=== PATIENT | male | born 1950 | race Caucasian/White ===

== ENCOUNTER 2017-12-01 09:16 | Emergency (ER) | payer MEDICARE ==
[~2017-12-01] VITALS: Ht 180.3 cm; Wt 100.0 kg
[2017-12-01 10:51] LABS: BASOPHILS # (AUTO) 0.02 x10^3/uL (0-0.1); BASOPHILS % (AUTO) 1 % (0-1); EOSINOPHILS # (AUTO) 0.17 x10^3/uL (0-0.4); EOSINOPHILS % (AUTO) 5 % (1-7); LYMPHOCYTES # (AUTO) 1.31 x10^3/uL (1-3.4); LYMPHOCYTES % (AUTO) 36 % (22-44); MD NO; MEAN CORPUSCULAR HEMOGLOBIN 35.3 pg (27.5-34.5); MEAN CORPUSCULAR HGB CONC 33.8 g/dL (33.2-36.2); MEAN CORPUSCULAR VOLUME 104.3 fL (81-97); MEAN PLATELET VOLUME 8.5 fL (7.4-10.4); MONOCYTES # (AUTO) 0.27 x10^3/uL (0.2-0.8); MONOCYTES % (AUTO) 7 % (2-9); NEUTROPHILS # (AUTO) 1.88 x10^3/uL (1.8-6.8); NEUTROPHILS % (AUTO) 52 % (42-75); PLATELET COUNT 145 x10^3/uL (130-400); RED BLOOD COUNT 3.43 x10^6/uL (4.38-5.82); RED CELL DISTRIBUTION WIDTH 13.5 % (9.4-14.8)
[2017-12-01 10:58] LABS: ALBUMIN 3.5 g/dL (3.4-5.0); ANION GAP 7 mmol/L (5-15); CALCIUM 8.1 mg/dL (8.5-10.1); CHLORIDE 102 mmol/L (98-107); CREATININE 0.65 mg/dL (0.7-1.3)
[2017-12-01 11:27] VITALS: BP 131/84
== END 2017-12-01 11:29 | disposition home or self-care (01) ==
LOC: ED 09:21
DX: J00 Acute nasopharyngitis [common cold] (principal); F10.220 Alcohol dependence with intoxication, uncomplicated; I10 Essential (primary) hypertension; I25.2 Old myocardial infarction; Z86.73 Personal history of transient ischemic attack (TIA), and cerebral infarction without residual deficits; F17.200 Nicotine dependence, unspecified, uncomplicated
CPT/HCPCS: 36415; 71045; 80048; 82040; 85025; 93005; 99285

== ENCOUNTER 2018-01-14 09:43 | Emergency (ER) | payer MEDICARE ==
[~2018-01-14] VITALS: Ht 180.3 cm; Wt 95.4 kg
[2018-01-14] MEDS ORDERED: ALLO100T30 PO (10:27)
[2018-01-14] MEDS ORDERED: LISI-170 PO (10:27)
[2018-01-14] MEDS ORDERED: ONDANSETRON 2MG/ML, 2ML IVPush ONE (10:30)
[2018-01-14] MEDS ORDERED: MORPHINE SULFATE 4 MG/ML, 1ML IVPush PRN (10:30)
[2018-01-14] MEDS ORDERED: SODIUM CHLORIDE FLUSH 10ML SYR IVF ONE (10:30)
[2018-01-14] MEDS ORDERED: ONDANSETRON 2MG/ML, 2ML ONE (10:37)
[2018-01-14] MEDS ORDERED: MORPHINE SULFATE 4 MG/ML, 1ML ONE (10:37)
[2018-01-14] MEDS ORDERED: DIAZEPAM 5 MG/ML, 2ML IV ONE (12:00)
[2018-01-14] MEDS ORDERED: KETOROLAC 30 MG/1 ML ONE (12:07)
[2018-01-14] MEDS ORDERED: KETOROLAC 30 MG/1 ML IVPush ONE (12:30)
[2018-01-14 13:12] VITALS: BP 161/91
== END 2018-01-14 13:22 | disposition home or self-care (01) ==
LOC: ED 13:16
DX: S33.5XXA Sprain of ligaments of lumbar spine, initial encounter (principal); S16.1XXA Strain of muscle, fascia and tendon at neck level, initial encounter; S76.011A Strain of muscle, fascia and tendon of right hip, initial encounter; S23.9XXA Sprain of unspecified parts of thorax, initial encounter; I25.2 Old myocardial infarction; I10 Essential (primary) hypertension; M10.9 Gout, unspecified; Z86.73 Personal history of transient ischemic attack (TIA), and cerebral infarction without residual deficits; W01.0XXA Fall on same level from slipping, tripping and stumbling without subsequent striking against object, initial encounter; Y93.89 Activity, other specified; Y92.009 Unspecified place in unspecified non-institutional (private) residence as the place of occurrence of the external cause; Y99.8 Other external cause status
CPT/HCPCS: 72072; 72110; 72125; 73502; 93005; 96374; 96375; 99284; J1885; J2405

== ENCOUNTER 2018-02-02 09:01 | Emergency (ER) | payer MEDICARE, MEDICAID ==
[~2018-02-02] VITALS: Ht 180.3 cm; Wt 92.2 kg
[~2018-02-02 09:01] MED LIST: ALLO100T30 PO; LISI-170 PO
[2018-02-02] MEDS ORDERED: DIAZEPAM 5 MG TABLET PO ONE (09:30)
[2018-02-02] MEDS ORDERED: KETOROLAC 30 MG/1 ML IM ONE (09:30)
[2018-02-02] MEDS ORDERED: DIAZEPAM 5 MG TABLET ONE (09:32)
[2018-02-02] MEDS ORDERED: KETOROLAC 30 MG/1 ML ONE (09:32)
[2018-02-02 12:07] VITALS: BP 145/92
== END 2018-02-02 12:44 | disposition home or self-care (01) ==
LOC: ED 11:27
DX: S16.1XXA Strain of muscle, fascia and tendon at neck level, initial encounter (principal); S39.012A Strain of muscle, fascia and tendon of lower back, initial encounter; M51.36 Other intervertebral disc degeneration, lumbar region; I10 Essential (primary) hypertension; W01.0XXA Fall on same level from slipping, tripping and stumbling without subsequent striking against object, initial encounter; Y93.89 Activity, other specified; Y92.009 Unspecified place in unspecified non-institutional (private) residence as the place of occurrence of the external cause; Y99.8 Other external cause status; F17.210 Nicotine dependence, cigarettes, uncomplicated
CPT/HCPCS: 72110; 72125; 96372; 99284; J1885

== ENCOUNTER 2018-03-03 20:00 | Emergency (ER) | payer MEDICARE, MEDICAID ==
[~2018-03-03] VITALS: Ht 180.3 cm; Wt 83.0 kg
[2018-03-03 20:05] VITALS: BP 141/72
== END 2018-03-04 02:31 | disposition home or self-care (01) ==
LOC: ED 22:08
DX: F10.120 Alcohol abuse with intoxication, uncomplicated (principal); I10 Essential (primary) hypertension; I25.2 Old myocardial infarction; Z86.73 Personal history of transient ischemic attack (TIA), and cerebral infarction without residual deficits; F17.200 Nicotine dependence, unspecified, uncomplicated
CPT/HCPCS: 99283

== ENCOUNTER 2018-04-03 22:37 | Emergency (ER) | payer MEDICARE, MEDICAID ==
[~2018-04-03] VITALS: Ht 180.3 cm; Wt 91.0 kg
--- NOTE | 2018-04-03 22:37 | NUR ---
BIB EMS from [facility] for SI, on a legal hold with [employer]. Pt states that he has no family and nothing to live for. Pt states that he was released from [facility] earlier today and went to [facility] stating that he was suicidal and upon being released flagged down [employer] in the parking lot of [facility] and stated that he is suicidal with a plan to "jump off of a bridge or in front of a train" but states "that didn't sound like a good idea." Pt states that he was given Rx from [facility] and did not fill them.
--- NOTE | 2018-04-03 22:50 | NUR ---
Urine sample collected and sent to lab. Garage doors down and pt in gown, 1 belonging bag, with pt sticker, placed in locked cabinet. Sitter outside of room for pt safety.
[2018-04-03 23:09] LABS: BASOPHILS # (AUTO) 0.01 x10^3/uL (0-0.1); BASOPHILS % (AUTO) 0 % (0-1); EOSINOPHILS # (AUTO) 0.12 x10^3/uL (0-0.4); EOSINOPHILS % (AUTO) 2 % (1-7); LYMPHOCYTES # (AUTO) 0.89 x10^3/uL (1-3.4); LYMPHOCYTES % (AUTO) 17 % (22-44); MD NO; MEAN CORPUSCULAR HEMOGLOBIN 32.6 pg (27.5-34.5); MEAN CORPUSCULAR HGB CONC 33.7 g/dL (33.2-36.2); MEAN CORPUSCULAR VOLUME 96.7 fL (81-97); MEAN PLATELET VOLUME 8.2 fL (7.4-10.4); MONOCYTES # (AUTO) 0.39 x10^3/uL (0.2-0.8); MONOCYTES % (AUTO) 8 % (2-9); NEUTROPHILS # (AUTO) 3.72 x10^3/uL (1.8-6.8); NEUTROPHILS % (AUTO) 72 % (42-75); PLATELET COUNT 153 x10^3/uL (130-400); RED BLOOD COUNT 3.62 x10^6/uL (4.38-5.82); RED CELL DISTRIBUTION WIDTH 14.3 % (9.4-14.8)
[2018-04-03 23:18] LABS: ALANINE AMINOTRANSFERASE 26 U/L (12-78); ALBUMIN 3.7 g/dL (3.4-5.0); ANION GAP 11 mmol/L (5-15); CALCIUM 8.2 mg/dL (8.5-10.1); CHLORIDE 93 mmol/L (98-107); CREATININE 0.51 mg/dL (0.7-1.3)
--- NOTE | 2018-04-03 23:18 | NUR ---
Dr. Cortez at bedside to evaluate pt.
[2018-04-03 23:20] LABS: SALICYLATE LEVEL < 1.7 mg/dL (2.8-20.0)
[2018-04-03 23:21] LABS: ACETAMINOPHEN < 2 mcg/mL (10-30); ALKALINE PHOSPHATASE 76 U/L (45-117); BILIRUBIN,TOTAL 0.7 mg/dL (0.2-1.0); TOTAL PROTEIN 6.8 g/dL (6.4-8.2)
--- NOTE | 2018-04-03 23:22 | NUR ---
Pt signed sheets for records requests from [facility] and [facility].
[2018-04-03 23:27] LABS: AMPHETAMINE SCREEN, URINE Negative (Negative); BARBITURATE SCREEN, URINE Negative (Negative); BENZODIAZEPINE SCREEN, URINE Negative (Negative); CANNABINOID SCREEN, URINE Positive (Negative); COCAINE SCREEN, URINE Negative (Negative); METHADONE SCREEN, URINE Negative (Negative); OPIATE SCREEN, URINE Negative (Negative)
--- NOTE | 2018-04-03 23:42 | NUR ---
ROSAMARIA RN: TELEPSYCH PAGED
--- NOTE | 2018-04-04 00:13 | NUR ---
Pt ambulated to bathroom, no assistance required.
--- NOTE | 2018-04-04 01:11 | NUR ---
Dr Menchaca, SOC, given SBAR report via telephone. Pt woken up for telepsych exam.
--- NOTE | 2018-04-04 01:13 | NUR ---
Pt speaking with SOC, Dr. Obregon.
[2018-04-04 02:04] VITALS: BP 138/78
--- NOTE | 2018-04-04 02:05 | NUR ---
Patient/Caregiver given discharge instructions and they have confirmed that they understand the instructions. Patient ambulatory with steady gait. Pt given [employer] cab voucher for safe discharge to the [facility].
== END 2018-04-04 02:06 | disposition home or self-care (01) ==
LOC: ED 23:18
DX: F43.23 Adjustment disorder with mixed anxiety and depressed mood (principal); Z72.9 Problem related to lifestyle, unspecified; F10.10 Alcohol abuse, uncomplicated; I25.2 Old myocardial infarction; I10 Essential (primary) hypertension; Z86.73 Personal history of transient ischemic attack (TIA), and cerebral infarction without residual deficits
CPT/HCPCS: 36415; 80053; 80307; 80329; 85025; 99284; G0480

== ENCOUNTER 2018-05-08 08:14 | Emergency (ER) | payer MEDICARE, MEDICAID ==
[~2018-05-08] VITALS: Ht 180.3 cm; Wt 88.0 kg
--- NOTE | 2018-05-08 08:52 | NUR ---
URINE COLLECTED AND SENT TO LAB. GARAGE DOORS DOWN FOR SAFETY.
--- NOTE | 2018-05-08 08:56 | NUR ---
patient safe in SONIA jacob at bedside for assessment
[2018-05-08 09:15] LABS: AMPHETAMINE SCREEN, URINE Negative (Negative); BARBITURATE SCREEN, URINE Negative (Negative); BENZODIAZEPINE SCREEN, URINE Negative (Negative); CANNABINOID SCREEN, URINE Positive (Negative); COCAINE SCREEN, URINE Negative (Negative); METHADONE SCREEN, URINE Negative (Negative); OPIATE SCREEN, URINE Negative (Negative)
[2018-05-08 09:22] LABS: BASOPHILS # (AUTO) 0.02 x10^3/uL (0-0.1); BASOPHILS % (AUTO) 0 % (0-1); EOSINOPHILS # (AUTO) 0.19 x10^3/uL (0-0.4); EOSINOPHILS % (AUTO) 3 % (1-7); LYMPHOCYTES # (AUTO) 0.71 x10^3/uL (1-3.4); LYMPHOCYTES % (AUTO) 13 % (22-44); MD NO; MEAN CORPUSCULAR HEMOGLOBIN 31.6 pg (27.5-34.5); MEAN CORPUSCULAR HGB CONC 32.9 g/dL (33.2-36.2); MEAN CORPUSCULAR VOLUME 95.9 fL (81-97); MONOCYTES # (AUTO) 0.44 x10^3/uL (0.2-0.8); MONOCYTES % (AUTO) 8 % (2-9); NEUTROPHILS # (AUTO) 4.09 x10^3/uL (1.8-6.8); NEUTROPHILS % (AUTO) 75 % (42-75); PLATELET COUNT 236 x10^3/uL (130-400); RED BLOOD COUNT 3.95 x10^6/uL (4.38-5.82); RED CELL DISTRIBUTION WIDTH 15.7 % (9.4-14.8)
[2018-05-08] MEDS ORDERED: LISINOPRIL 20 MG TABLET PO ONE (09:30)
[2018-05-08 09:33] LABS: ANION GAP 8 mmol/L (5-15); CHLORIDE 102 mmol/L (98-107)
[2018-05-08 09:41] LABS: ALANINE AMINOTRANSFERASE 28 U/L (12-78); ALKALINE PHOSPHATASE 101 U/L (45-117); BILIRUBIN,TOTAL 0.7 mg/dL (0.2-1.0); CALCIUM 8.8 mg/dL (8.5-10.1); CREATININE 0.64 mg/dL (0.7-1.3); TOTAL PROTEIN 6.6 g/dL (6.4-8.2)
[2018-05-08 09:42] LABS: ACETAMINOPHEN < 2 mcg/mL (10-30); SALICYLATE LEVEL < 1.7 mg/dL (2.8-20.0)
[2018-05-08 11:53] VITALS: BP 155/94
--- NOTE | 2018-05-08 12:04 | NUR ---
TASK RN: PSYCH EVALUATION COMPLETE, PT HAS BEEN CLEARED FOR DISCHARGE. PT ALERT AND AMBULATING WELL. BUS PASS AND MEDICATION ASSISTANCE INFORMATION GIVEN.
== END 2018-05-08 12:08 | disposition home or self-care (01) ==
LOC: ED 09:11
DX: F32.0 Major depressive disorder, single episode, mild (principal); I10 Essential (primary) hypertension; I25.2 Old myocardial infarction; Z72.9 Problem related to lifestyle, unspecified; Z86.73 Personal history of transient ischemic attack (TIA), and cerebral infarction without residual deficits
CPT/HCPCS: 36415; 80053; 80307; 80329; 85025; 99284; G0480

== ENCOUNTER 2018-08-18 23:35 | Inpatient (IN) | payer MEDICARE, MEDICAID ==
[~2018-08-18] VITALS: Ht 180.3 cm; Wt 92.9 kg
[~2018-08-18 23:35] MED LIST changes: +ACAM333T7 PO; +ALLO300T PO; +ASPI81TA50 PO; +DULO20CA45 PO; +DULO60CA7 PO; +GABA-827 PO; +GABA600T7 PO; +LISI2.5T PO; +METH750T2 PO; +METO200T47 PO; +NAPR-856 PO; +OMEP10CA4 PO; +PRAZ1CAP2 PO; +PRED1TAB PO; +QUET25TA5 PO; +QUET25TA7 PO; +TRAZ-137 PO
[2018-08-19] MEDS ORDERED: ACETAMINOPHEN 325 MG TABLET PO PRN (02:30)
[2018-08-19 02:51] VITALS: BP 119/83
[2018-08-19 03:00] VITALS: BP_SYST 119; BP_SYST 136; BP_SYST 92; BP_DIAS 64; BP_DIAS 83; BP_DIAS 85
[2018-08-19 07:27] VITALS: BP 138/89
[2018-08-19] MEDS ORDERED: DIPHENHYDRAMINE 25 MG CAPSULE PO PRN (10:00)
[2018-08-19] MEDS ORDERED: LACTOBACILLUS CHEW TABLET PO SCH (16:00)
[2018-08-19] MEDS ORDERED: ACAMPROSATE 333 MG TABLET.DR PO SCH (16:00)
[2018-08-19] MEDS ORDERED: GABAPENTIN 300 MG CAPSULE PO SCH (16:00)
[2018-08-19] MEDS ORDERED: CARVEDILOL 3.125 MG TABLET PO SCH (18:00)
[2018-08-19] MEDS ORDERED: QUETIAPINE 25MG TABLET PO SCH (21:00)
[2018-08-19] MEDS ORDERED: ATORVASTATIN 20 MG TABLET PO SCH (21:00)
[2018-08-19] MEDS ORDERED: TRAZODONE 100MG TABLET PO SCH (21:00)
[2018-08-20] MEDS ORDERED: ALLOPURINOL 100 MG TABLET PO SCH (09:00)
[2018-08-20] MEDS ORDERED: DULOXETINE 30 MG CAPSULE.DR PO SCH (09:00)
[2018-08-20] MEDS ORDERED: NAPROXEN 500 MG TABLET PO SCH (09:00)
[2018-08-20] MEDS ORDERED: LISINOPRIL 20 MG TABLET PO SCH (09:00)
[2018-08-20] MEDS ORDERED: OMEPRAZOLE 10 MG CAPSULE.DR PO SCH (09:00)
[2018-08-20] MEDS ORDERED: ASPIRIN 81 MG TABLET EC PO SCH (09:00)
[2018-08-20] MEDS ORDERED: AMLODIPINE 2.5 MG TABLET PO SCH (09:00)
== END 2018-08-19 13:00 | disposition home or self-care (01) | DRG 885 ==
LOC: 3E 08-19 02:38
PROVIDERS: ADMIT Psychiatry & Neurology Psychosomatic Medicine; ATTEND Psychiatry & Neurology Psychosomatic Medicine
DX: F33.2 Major depressive disorder, recurrent severe without psychotic features (principal); R45.851 Suicidal ideations; F10.20 Alcohol dependence, uncomplicated; G47.00 Insomnia, unspecified; G89.29 Other chronic pain; I10 Essential (primary) hypertension; I25.10 Atherosclerotic heart disease of native coronary artery without angina pectoris; I48.91 Unspecified atrial fibrillation; K21.9 Gastro-esophageal reflux disease without esophagitis; E66.9 Obesity, unspecified; M10.9 Gout, unspecified; Z79.82 Long term (current) use of aspirin; Z79.899 Other long term (current) drug therapy; Z80.0 Family history of malignant neoplasm of digestive organs; Z82.0 Family history of epilepsy and other diseases of the nervous system; Z86.73 Personal history of transient ischemic attack (TIA), and cerebral infarction without residual deficits; Z87.891 Personal history of nicotine dependence; Z68.28 Body mass index [BMI] 28.0-28.9, adult; Z71.3 Dietary counseling and surveillance

== ENCOUNTER 2018-09-16 04:37 | Inpatient (IN) | payer MEDICARE, MEDICAID ==
[~2018-09-16] VITALS: Ht 180.3 cm; Wt 98.6 kg
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
--- NOTE | 2018-09-16 05:20 | NUR ---
PT. OUT OF ROOM FOR CT.
--- NOTE | 2018-09-16 05:50 | NUR ---
PT. ABLE TO VOID VIA URINAL WITHOUT ASSISTANCE. URINE SENT TO LAB. LABS DRAWN BY COORDINATOR VOLUNTEER SERVICES AT . PT. ASSISTED TO CLEAN BLOOD OFF HANDS AND ARMS. AWAITING CT SCAN RESULTS. C-COLLAR REMAINS IN PLACE. VS UPDATED. PT. HAS CALL LIGHT IN REACH. ALL SAFETY MEASURES OBSERVED.
[2018-09-16 05:56] LABS: MEAN CORPUSCULAR HGB CONC 34.7 g/dL (33.2-36.2); RED BLOOD COUNT 3.37 x10^6/uL (4.38-5.82); RED CELL DISTRIBUTION WIDTH 14.1 % (9.4-14.8)
[2018-09-16 06:05] LABS: ALBUMIN 3.4 g/dL (3.4-5.0); ANION GAP 10 mmol/L (5-15); CALCIUM 7.8 mg/dL (8.5-10.1); CHLORIDE 91 mmol/L (98-107)
[2018-09-16 06:06] LABS: SALICYLATE LEVEL < 1.7 mg/dL (2.8-20.0)
[2018-09-16 06:07] LABS: AMPHETAMINE SCREEN, URINE Negative (Negative); BARBITURATE SCREEN, URINE Negative (Negative); BENZODIAZEPINE SCREEN, URINE Negative (Negative); CANNABINOID SCREEN, URINE Positive (Negative); COCAINE SCREEN, URINE Negative (Negative); METHADONE SCREEN, URINE Negative (Negative); OPIATE SCREEN, URINE Negative (Negative)
[2018-09-16 06:35] LABS: MD YES
[2018-09-16 06:39] LABS: BAND#(MANUAL) 0.05 x10^3/uL; BANDS%(MANUAL) 1 % (0-7); EOS#(MANUAL) 0.14 x10^3/uL (0.0-0.4); EOS% (MANUAL) 3 % (1-7); LYMPH#(MANUAL) 0.87 x10^3/uL (1-3.4); LYMPHS% (MANUAL) 19 % (22-44); MONOS#(MANUAL) 0.23 x10^3/uL (0.3-2.7); MONOS% (MANUAL) 5 % (2-9); SEG#(MANUAL) 3.31 x10^3/uL (1.8-6.8); SEGS% (MANUAL) 72 % (42-75)
[2018-09-16 06:42] LABS: MEAN PLATELET VOLUME 7.8 fL (7.4-10.4); PLATELET COUNT 95 x10^3/uL (130-400)
[2018-09-16 06:45] LABS: <PLATELET ESTIMATE> DECREASED; <PLT MORPHOLOGY> NORMAL PLT MORPH; <RBC MORPHOLOGY> NORMAL
[2018-09-16 06:46] LABS: SODIUM,URINE RANDOM 34 mmol/L
[2018-09-16] MEDS ORDERED: LIDOCAINE-MPF 1%, 5ML ONE (06:48)
[2018-09-16] MEDS ORDERED: THIAMINE 100MG TABLET ONE (06:48)
--- NOTE | 2018-09-16 06:57 | NUR ---
received report from Laquita. pt upright on gurney awake & calm, responds approp to staff, NAD, comfort measures provided, call light within reach. providers at for wound care.
[2018-09-16 06:58] LABS: OSMOLALITY,URINE 336 mOsm/kg (500-850)
[2018-09-16] MEDS ORDERED: THIAMINE 100MG TABLET PO ONE (07:00)
[2018-09-16] MEDS ORDERED: LIDOCAINE-MPF 1%, 5ML INFIL ONE (07:00)
--- NOTE | 2018-09-16 07:20 | NUR ---
Pt to be admitted to [facility], room 424. Report called to Rashawn.
[2018-09-16 08:10] LABS: ALBUMIN 3.5 g/dL (3.4-5.0); BILIRUBIN, DIRECT 0.2 mg/dL (0.1-0.2)
[2018-09-16 08:11] LABS: BILIRUBIN,INDIRECT 0.6 mg/dL (0.0-2.0); BILIRUBIN,TOTAL 0.8 mg/dL (0.2-1.0); TOTAL PROTEIN 6.5 g/dL (6.4-8.2)
[2018-09-16 08:29] VITALS: BP 116/75
[2018-09-16] MEDS ORDERED: ONDANSETRON 2MG/ML, 2ML IVPush PRN (09:00)
[2018-09-16] MEDS ORDERED: OXYcodone IR 5MG TABLET PO PRN (09:00)
[2018-09-16] MEDS ORDERED: morphine SULFATE 10 MG/ML, 1ML IVPush PRN (09:00)
[2018-09-16] MEDS ORDERED: GUAIFENESIN/COD200MG-20MG/10ML LIQUID PO PRN (09:00)
[2018-09-16] MEDS ORDERED: LORazepam 2 MG/ML, 1ML IV PRN ×4 (09:00)
[2018-09-16] MEDS ORDERED: ACETAMINOPHEN 325 MG TABLET PO PRN (09:00)
[2018-09-16] MEDS ORDERED: DOCUSATE 100 MG CAPSULE PO PRN (09:00)
[2018-09-16] MEDS ORDERED: hydrALAzine 20 MG/ML, 1ML IVPush PRN (09:00)
[2018-09-16] MEDS ORDERED: THIAMINE 200 MG in DEXTROSE 5% 50 ML IVPB ONE (09:00)
[2018-09-16] MEDS ORDERED: POTASSIUM CHLORIDE 20 MEQ, MVI ADULT 10 ML, FOLIC ACID 1 MG, MAGNESIUM SULFATE 1 GM in ... IV SCH (09:30)
[2018-09-16] MEDS: NAPROXEN 500 MG TABLET PO SCH (10:34)
[2018-09-16] MEDS: GABAPENTIN 300 MG CAPSULE PO SCH ×3 (10:34→21:30)
[2018-09-16] MEDS: DULOXETINE 30 MG CAPSULE.DR PO SCH (10:34)
[2018-09-16] MEDS: ENOXAPARIN 40 MG/0.4 ML SQ SCH (10:34)
[2018-09-16] MEDS: ALLOPURINOL 100 MG TABLET PO SCH (10:34)
[2018-09-16] MEDS: ASPIRIN 81 MG TABLET EC PO SCH (10:34)
[2018-09-16] MEDS: PANTOPROZOLE 40MG TABLET PO SCH (10:34)
[2018-09-16] MEDS: LISINOPRIL 20 MG TABLET PO SCH (10:34)
[2018-09-16] MEDS: SODIUM CHLORIDE 1 GM TABLET PO SCH ×3 (10:34→21:30)
[2018-09-16 12:12] VITALS: BP 125/79
[2018-09-16 16:07] LABS: ANION GAP 7 mmol/L (5-15); CHLORIDE 98 mmol/L (98-107); CREATININE 0.58 mg/dL (0.7-1.3)
[2018-09-16 20:10] VITALS: BP 113/70
[2018-09-16] MEDS: D5%-0.9% NACL+KCL 20MEQ 1,000 ML IV SCH (21:29)
[2018-09-16] MEDS: QUETIAPINE 25MG TABLET PO SCH (21:30)
[2018-09-16] MEDS: TRAZODONE 100MG TABLET PO SCH (21:30)
[2018-09-17 00:47] VITALS: BP 93/55
[2018-09-17] MEDS: D5%-0.9% NACL+KCL 20MEQ 1,000 ML IV SCH (05:14)
[2018-09-17 06:01] LABS: ANION GAP 4 mmol/L (5-15); CALCIUM 8.2 mg/dL (8.5-10.1); CHLORIDE 104 mmol/L (98-107); CREATININE 0.62 mg/dL (0.7-1.3)
[2018-09-17 06:13] LABS: MEAN CORPUSCULAR HEMOGLOBIN 32.1 pg (27.5-34.5); MEAN CORPUSCULAR HGB CONC 33.3 g/dL (33.2-36.2); MEAN CORPUSCULAR VOLUME 96.2 fL (81-97); MEAN PLATELET VOLUME 8.5 fL (7.4-10.4); PLATELET COUNT 87 x10^3/uL (130-400); RED BLOOD COUNT 3.47 x10^6/uL (4.38-5.82); RED CELL DISTRIBUTION WIDTH 15.1 % (9.4-14.8)
[2018-09-17 06:14] LABS: BASOPHILS # (AUTO) 0.01 x10^3/uL (0-0.1); BASOPHILS % (AUTO) 0 % (0-1); EOSINOPHILS # (AUTO) 0.18 x10^3/uL (0-0.4); EOSINOPHILS % (AUTO) 6 % (1-7); LYMPHOCYTES # (AUTO) 0.81 x10^3/uL (1-3.4); LYMPHOCYTES % (AUTO) 27 % (22-44); MD SCAN; MONOCYTES # (AUTO) 0.23 x10^3/uL (0.2-0.8); MONOCYTES % (AUTO) 8 % (2-9); NEUTROPHILS # (AUTO) 1.76 x10^3/uL (1.8-6.8); NEUTROPHILS % (AUTO) 59 % (42-75)
[2018-09-17 07:47] VITALS: BP 127/81
[2018-09-17] MEDS: DULOXETINE 30 MG CAPSULE.DR PO SCH (08:01)
[2018-09-17] MEDS: LISINOPRIL 20 MG TABLET PO SCH (08:01)
[2018-09-17] MEDS: MULTIVITAMIN 1 TABLET PO SCH (08:01)
[2018-09-17] MEDS: NALTREXONE HCL 50 MG TABLET PO SCH (08:01)
[2018-09-17] MEDS: FOLIC ACID 1 MG TABLET PO SCH (08:01)
[2018-09-17] MEDS: NAPROXEN 500 MG TABLET PO SCH (08:01)
[2018-09-17] MEDS: THIAMINE 100MG TABLET PO SCH ×2 (08:01→21:06)
[2018-09-17] MEDS: PANTOPROZOLE 40MG TABLET PO SCH (08:01)
[2018-09-17] MEDS: ASPIRIN 81 MG TABLET EC PO SCH (08:01)
[2018-09-17] MEDS: BUPROPION SR 150 MG TABLET PO SCH (08:01)
[2018-09-17] MEDS: ALLOPURINOL 100 MG TABLET PO SCH (08:01)
[2018-09-17] MEDS: GABAPENTIN 300 MG CAPSULE PO SCH ×3 (08:04→21:06)
[2018-09-17] MEDS ORDERED: THIAMINE 100 MG in DEXTROSE 5% 50 ML IVPB SCH (09:00)
[2018-09-17] MEDS ORDERED: THIAMINE 100MG TABLET PO SCH (09:00)
[2018-09-17] MEDS: ENOXAPARIN 40 MG/0.4 ML SQ SCH (09:39)
[2018-09-17 12:11] VITALS: BP 165/95
[2018-09-17] MEDS ORDERED: SENNA/DOCUSATE TABLET PO PRN (16:00)
[2018-09-17] MEDS ORDERED: POLYETHYLENE GLYCOL 17 GM PACKET PO PRN (16:00)
[2018-09-17 19:32] VITALS: BP 116/77
[2018-09-17] MEDS: TRAZODONE 100MG TABLET PO SCH (21:06)
[2018-09-17] MEDS: QUETIAPINE 25MG TABLET PO SCH (21:06)
[2018-09-17] MEDS: LORazepam 2 MG/ML, 1ML IV PRN (21:07)
[2018-09-18 02:24] VITALS: BP 118/66
[2018-09-18 05:31] LABS: CALCIUM 8.5 mg/dL (8.5-10.1); CHLORIDE 102 mmol/L (98-107)
[2018-09-18 05:37] LABS: ALANINE AMINOTRANSFERASE 28 U/L (12-78); ALBUMIN 3.2 g/dL (3.4-5.0); ALKALINE PHOSPHATASE 62 U/L (45-117); BILIRUBIN,TOTAL 0.7 mg/dL (0.2-1.0); CREATININE 0.69 mg/dL (0.7-1.3); TOTAL PROTEIN 6.2 g/dL (6.4-8.2)
[2018-09-18 05:53] LABS: MEAN CORPUSCULAR HEMOGLOBIN 32.2 pg (27.5-34.5); MEAN CORPUSCULAR VOLUME 97.6 fL (81-97); RED BLOOD COUNT 3.32 x10^6/uL (4.38-5.82); RED CELL DISTRIBUTION WIDTH 14.7 % (9.4-14.8)
[2018-09-18 05:55] LABS: BASOPHILS # (AUTO) 0.01 x10^3/uL (0-0.1); BASOPHILS % (AUTO) 1 % (0-1); EOSINOPHILS # (AUTO) 0.16 x10^3/uL (0-0.4); EOSINOPHILS % (AUTO) 8 % (1-7); LYMPHOCYTES # (AUTO) 0.67 x10^3/uL (1-3.4); LYMPHOCYTES % (AUTO) 33 % (22-44); MD SCAN; MEAN PLATELET VOLUME 8.5 fL (7.4-10.4); MONOCYTES % (AUTO) 10 % (2-9); NEUTROPHILS # (AUTO) 0.99 x10^3/uL (1.8-6.8); NEUTROPHILS % (AUTO) 49 % (42-75); PLATELET COUNT 57 x10^3/uL (130-400)
[2018-09-18 06:27] LABS: ANION GAP 4 mmol/L (5-15)
[2018-09-18] MEDS: PANTOPROZOLE 40MG TABLET PO SCH (07:57)
[2018-09-18] MEDS: ASPIRIN 81 MG TABLET EC PO SCH (07:57)
[2018-09-18] MEDS: DULOXETINE 30 MG CAPSULE.DR PO SCH (07:57)
[2018-09-18] MEDS: GABAPENTIN 300 MG CAPSULE PO SCH ×3 (07:58→19:45)
[2018-09-18] MEDS: MULTIVITAMIN 1 TABLET PO SCH (07:58)
[2018-09-18] MEDS: ALLOPURINOL 100 MG TABLET PO SCH (07:58)
[2018-09-18] MEDS: FOLIC ACID 1 MG TABLET PO SCH (07:58)
[2018-09-18] MEDS: NALTREXONE HCL 50 MG TABLET PO SCH (07:58)
[2018-09-18] MEDS: THIAMINE 100MG TABLET PO SCH ×2 (07:58→19:45)
[2018-09-18] MEDS: LISINOPRIL 20 MG TABLET PO SCH (07:58)
[2018-09-18] MEDS: NAPROXEN 500 MG TABLET PO SCH (07:58)
[2018-09-18] MEDS: BUPROPION SR 150 MG TABLET PO SCH (07:58)
[2018-09-18 08:00] VITALS: BP 129/85
[2018-09-18 09:23] LABS: INTERNATIONAL NORMALIZED RATIO 1.09 (0.93-1.1); PROTHROMBIN TIME 11.4 Seconds (9.6-11.5)
[2018-09-18 09:30] LABS: RED BLOOD COUNT 3.34 x10^6/uL (4.38-5.82)
[2018-09-18 09:48] LABS: THYROID STIMULATING HORMONE 1.08 mIU/L (0.358-3.740)
[2018-09-18] MEDS: LORazepam 2 MG/ML, 1ML IV PRN (10:00)
[2018-09-18 10:29] LABS: ABSOLUTE RETICS # 0.082 x10^6/uL (0.5-1.5); RETICULOCYTE COUNT % 2.47 % (0.5-1.5)
[2018-09-18 13:06] VITALS: BP 154/88
[2018-09-18 19:25] VITALS: BP 116/80
[2018-09-18] MEDS: TRAZODONE 100MG TABLET PO SCH (19:45)
[2018-09-18] MEDS: QUETIAPINE 25MG TABLET PO SCH (19:46)
[2018-09-19 01:59] VITALS: BP 98/62
[2018-09-19 06:09] LABS: MEAN CORPUSCULAR HEMOGLOBIN 32.3 pg (27.5-34.5); MEAN CORPUSCULAR HGB CONC 33.1 g/dL (33.2-36.2); MEAN CORPUSCULAR VOLUME 97.4 fL (81-97); MEAN PLATELET VOLUME 8.6 fL (7.4-10.4); PLATELET COUNT 63 x10^3/uL (130-400); RED BLOOD COUNT 3.29 x10^6/uL (4.38-5.82); RED CELL DISTRIBUTION WIDTH 14.4 % (9.4-14.8)
[2018-09-19 06:13] LABS: ANION GAP 5 mmol/L (5-15); CALCIUM 8.6 mg/dL (8.5-10.1); CHLORIDE 97 mmol/L (98-107); CREATININE 0.82 mg/dL (0.7-1.3)
[2018-09-19 06:59] LABS: BASOPHILS # (AUTO) 0.01 x10^3/uL (0-0.1); BASOPHILS % (AUTO) 1 % (0-1); EOSINOPHILS # (AUTO) 0.15 x10^3/uL (0-0.4); EOSINOPHILS % (AUTO) 7 % (1-7); LYMPHOCYTES % (AUTO) 27 % (22-44); MD SCAN; MONOCYTES # (AUTO) 0.21 x10^3/uL (0.2-0.8); MONOCYTES % (AUTO) 10 % (2-9); NEUTROPHILS # (AUTO) 1.28 x10^3/uL (1.8-6.8); NEUTROPHILS % (AUTO) 57 % (42-75)
[2018-09-19 07:12] VITALS: BP 138/88
== END 2018-09-19 09:43 | disposition left against medical advice (07) | DRG 640 ==
LOC: ED 05:57 → EDIP 06:35 → 4WST 08:01
PROVIDERS: ADMIT Hospitalist; ATTEND Hospitalist
PROC: 0HQ1XZZ Repair Face Skin, External Approach (ICD-10-PCS; principal; 2018-09-16)
PROC: 0CQ0XZZ Repair Upper Lip, External Approach (ICD-10-PCS; 2018-09-16)
DX: E87.1 Hypo-osmolality and hyponatremia (principal); D61.811 Other drug-induced pancytopenia; F32.2 Major depressive disorder, single episode, severe without psychotic features; R45.851 Suicidal ideations; F10.229 Alcohol dependence with intoxication, unspecified; D69.6 Thrombocytopenia, unspecified; Z53.21 Procedure and treatment not carried out due to patient leaving prior to being seen by health care provider; F12.90 Cannabis use, unspecified, uncomplicated; G62.9 Polyneuropathy, unspecified; I10 Essential (primary) hypertension; I48.91 Unspecified atrial fibrillation; K21.9 Gastro-esophageal reflux disease without esophagitis; S01.21XA Laceration without foreign body of nose, initial encounter; S01.81XA Laceration without foreign body of other part of head, initial encounter; E66.9 Obesity, unspecified; F43.20 Adjustment disorder, unspecified; M10.9 Gout, unspecified; W01.198A Fall on same level from slipping, tripping and stumbling with subsequent striking against other object, initial encounter; T50.4X5A Adverse effect of drugs affecting uric acid metabolism, initial encounter; Z80.0 Family history of malignant neoplasm of digestive organs; Z82.0 Family history of epilepsy and other diseases of the nervous system; Z86.73 Personal history of transient ischemic attack (TIA), and cerebral infarction without residual deficits; Z87.891 Personal history of nicotine dependence; Y93.89 Activity, other specified; Y92.89 Other specified places as the place of occurrence of the external cause; Y99.8 Other external cause status; Z79.899 Other long term (current) drug therapy; I25.2 Old myocardial infarction; Z68.30 Body mass index [BMI] 30.0-30.9, adult
CPT/HCPCS: 36415; 70450; 72125; 80048; 80053; 80076; 80307; 82040; 82607; 83735; 83930; 83935; 84100; 84300; 84443; 85025; 85045; 85610; 85730; 86704; 86705; 86706; 86707; 86803; 86850; 86900; 87340; 87350; 87806; G0378; J1650; J3411; J3475; J3480; J7042; G0475; J2060

== ENCOUNTER 2018-09-19 22:36 | Emergency (ER) | payer MEDICARE, MEDICAID ==
[~2018-09-19] VITALS: Ht 180.3 cm; Wt 100.0 kg
[2018-09-19 22:45] VITALS: BP 115/73
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
--- NOTE | 2018-09-20 00:46 | NUR ---
PT GIVEN DC INSTRUCTIONS. PT AMB TO DC WITH STEADY GAIT. NO ACUTE DISTRESS AT DC.
== END 2018-09-20 00:46 | disposition home or self-care (01) ==
LOC: ED 22:52
DX: F10.120 Alcohol abuse with intoxication, uncomplicated (principal); F32.9 Major depressive disorder, single episode, unspecified; Z72.9 Problem related to lifestyle, unspecified; F17.210 Nicotine dependence, cigarettes, uncomplicated; I10 Essential (primary) hypertension; I25.2 Old myocardial infarction
CPT/HCPCS: 99283

== ENCOUNTER 2018-10-02 15:07 | Inpatient (IN) | payer MEDICARE, MEDICAID ==
[~2018-10-02] VITALS: Ht 180.3 cm; Wt 96.0 kg
--- NOTE | 2018-10-02 15:13 | NUR ---
68 Y/O MALE BIB AMBULANCE WITH C/O CP AND SA. PER PT "I FELL DOWN IN THE BATHROOM. I TRIED TO COMMIT SUICIDE. I TRIED TO HANG MYSELF WITH THE SHOELACE AND I PUT IT BACK IN MY SHOE. IT WAS ABOUT 1400 I PUT THE SHOELACE AROUND MY NECK. THE SHELACE CAME LOSE AND I FELL TO THE GROUND. MY ARMS AND HANDS ARE BOTH NUMB. I CALLED 911 BECAUSE I WAS HAVING CHEST PAIN AND NUMBNESS. I HAVEN'T TAKEN MY MEDS AND JUST GOT OUT OF [facility]." PER EMS REPORT PT CAME FROM [facility]. PIV ESTABLISHED MANAGER TRANSFER. PT GIVEN 324 ASA AND 1 SL NITRO. PT PLACED ON CONT PULSE OX,NIBP, CARDAIC MONITOR. ED PROVIDER BEDSIDE.
--- NOTE | 2018-10-02 15:23 | NUR ---
PT ALSO STATES "I FELL THE OTHER DAY." PT HAS BRUISE ON RIGHT QUADRANT ABDOMEN. PT TENDER TO PALPATATION R ABDOMINAL QUADRANT.
[2018-10-02] MEDS ORDERED: SODIUM CHLORIDE FLUSH 10ML SYR IVF ONE (15:30)
[2018-10-02 15:46] LABS: BASOPHILS # (AUTO) 0.02 x10^3/uL (0-0.1); BASOPHILS % (AUTO) 0 % (0-1); EOSINOPHILS # (AUTO) 0.06 x10^3/uL (0-0.4); EOSINOPHILS % (AUTO) 1 % (1-7); LYMPHOCYTES # (AUTO) 0.74 x10^3/uL (1-3.4); LYMPHOCYTES % (AUTO) 11 % (22-44); MD NO; MEAN CORPUSCULAR HGB CONC 33.6 g/dL (33.2-36.2); MEAN CORPUSCULAR VOLUME 98.3 fL (81-97); MONOCYTES # (AUTO) 0.26 x10^3/uL (0.2-0.8); MONOCYTES % (AUTO) 4 % (2-9); NEUTROPHILS # (AUTO) 5.63 x10^3/uL (1.8-6.8); NEUTROPHILS % (AUTO) 84 % (42-75); PLATELET COUNT 152 x10^3/uL (130-400); RED BLOOD COUNT 3.71 x10^6/uL (4.38-5.82); RED CELL DISTRIBUTION WIDTH 15.3 % (9.4-14.8)
--- NOTE | 2018-10-02 15:54 | NUR ---
RECEIVED REPORT FROM YECENIA ZAMORA. PT MOVED TO ROOM 38. ROOM SECURED ON ONE WALL. PT PLACED ON MONITORS FOR CP MONITORING. SITTER AT BEDSIDE. PERSONAL BELONGING BAGS (1 OF 1) PLACED IN SECURE LOCKER. PT RESTING ON [facility]. NADN. MURILLOS.
[2018-10-02 15:58] LABS: INTERNATIONAL NORMALIZED RATIO 1.08 (0.93-1.1); PROTHROMBIN TIME 11.3 Seconds (9.6-11.5)
[2018-10-02 16:26] LABS: ALBUMIN 3.8 g/dL (3.4-5.0); ANION GAP 10 mmol/L (5-15); CALCIUM 8.5 mg/dL (8.5-10.1); CHLORIDE 92 mmol/L (98-107); CREATININE 0.62 mg/dL (0.7-1.3)
[2018-10-02 16:27] LABS: SALICYLATE LEVEL < 1.7 mg/dL (2.8-20.0)
[2018-10-02 16:31] LABS: TROPONIN I < 0.015 ng/mL (0.000-0.045)
--- NOTE | 2018-10-02 17:24 | NUR ---
PT RESTING ON ODIN. VSS. SITTER REMAINS AT BEDSIDE. ROOM REMAINS SECURE. PT STATES CP HAS SUBSIDED.
[2018-10-02 17:25] LABS: AMPHETAMINE SCREEN, URINE Negative (Negative); BARBITURATE SCREEN, URINE Negative (Negative); BENZODIAZEPINE SCREEN, URINE Negative (Negative); CANNABINOID SCREEN, URINE Negative (Negative); COCAINE SCREEN, URINE Negative (Negative); METHADONE SCREEN, URINE Negative (Negative); OPIATE SCREEN, URINE Negative (Negative)
--- NOTE | 2018-10-02 17:27 | NUR ---
PT PROVIDED W/ SI DINNER TRAY.
--- NOTE | 2018-10-02 17:29 | NUR ---
PT CHART REVIEWED AND PLACED FOR RECHECK.
--- NOTE | 2018-10-02 18:15 | NUR ---
PT RESTING ON ODIN. LIEN. VSS. SITTER REMAINS AT BEDSIDE. ROOM REMAINS SECURE.
[2018-10-02] MEDS ORDERED: SODIUM CHLORIDE FLUSH 10ML SYR IVF PRN (18:30)
--- NOTE | 2018-10-02 18:51 | NUR ---
REPORT GIVEN TO BALDEV JUAREZ RN.
[2018-10-02] MEDS ORDERED: PROMETHAZINE 25 MG/ML, 1ML IM PRN (19:00)
[2018-10-02] MEDS ORDERED: ACETAMINOPHEN 325 MG TABLET PO PRN (19:00)
[2018-10-02] MEDS ORDERED: NITROGLYCERIN 0.4 MG BOTTLE (25 TABS) SL PRN (19:00)
--- NOTE | 2018-10-02 19:18 | NUR ---
PT UP TO RESTROOM AT THIS TIME WITH SITTER.
[2018-10-02 19:42] VITALS: BP 147/93
[2018-10-02 19:48] LABS: TROPONIN I < 0.015 ng/mL (0.000-0.045)
[2018-10-02 19:56] LABS: HEMOGLOBIN A1C 5.2 % (4.2-6.3)
[2018-10-02] MEDS ORDERED: MAGNESIUM SULFATE PMX 2GM/50ML 50 ML IV ONE (20:00)
[2018-10-02] MEDS ORDERED: LORazepam 2 MG/ML, 1ML IV PRN ×4 (20:00)
[2018-10-02] MEDS: POTASSIUM CHLORIDE 20 MEQ, MAGNESIUM SULFATE 2 GM, THIAMINE 200 MG, MVI ADULT 10 ML, FO... IV SCH (21:39)
[2018-10-02] MEDS: FAMOTIDINE 20 MG TABLET PO SCH (21:45)
[2018-10-02] MEDS: HEPARIN 5,000 UNITS/ML, 1ML SQ SCH (21:45)
[2018-10-02] MEDS: ATORVASTATIN 20 MG TABLET PO SCH (21:45)
[2018-10-02] MEDS: TRAZODONE 100MG TABLET PO SCH (21:46)
[2018-10-02] MEDS: QUETIAPINE 25MG TABLET PO SCH (21:47)
[2018-10-03 00:10] LABS: ALANINE AMINOTRANSFERASE 32 U/L (12-78); ALBUMIN 3.5 g/dL (3.4-5.0); ANION GAP 7 mmol/L (5-15); CALCIUM 8.5 mg/dL (8.5-10.1); CHLORIDE 97 mmol/L (98-107); CREATININE 0.56 mg/dL (0.7-1.3)
[2018-10-03 00:12] LABS: ALKALINE PHOSPHATASE 71 U/L (45-117); BILIRUBIN,TOTAL 1.1 mg/dL (0.2-1.0)
[2018-10-03 01:25] LABS: TROPONIN I < 0.015 ng/mL (0.000-0.045)
[2018-10-03 02:12] LABS: CLOSTRIDIUM DIFFICILE ANTIGEN NEGATIVE; CLOSTRIDIUM DIFFICILE TOXIN NEGATIVE (Negative)
[2018-10-03] MEDS: HEPARIN 5,000 UNITS/ML, 1ML SQ SCH ×3 (03:38→17:34)
[2018-10-03 03:59] VITALS: BP 105/67
[2018-10-03 04:54] LABS: BASOPHILS # (AUTO) 0.02 x10^3/uL (0-0.1); BASOPHILS % (AUTO) 1 % (0-1); EOSINOPHILS % (AUTO) 6 % (1-7); LYMPHOCYTES # (AUTO) 0.94 x10^3/uL (1-3.4); LYMPHOCYTES % (AUTO) 27 % (22-44); MD NO; MEAN CORPUSCULAR HGB CONC 33.5 g/dL (33.2-36.2); MEAN CORPUSCULAR VOLUME 98.4 fL (81-97); MEAN PLATELET VOLUME 8.4 fL (7.4-10.4); MONOCYTES # (AUTO) 0.45 x10^3/uL (0.2-0.8); MONOCYTES % (AUTO) 13 % (2-9); NEUTROPHILS # (AUTO) 1.93 x10^3/uL (1.8-6.8); NEUTROPHILS % (AUTO) 54 % (42-75); PLATELET COUNT 129 x10^3/uL (130-400); RED BLOOD COUNT 3.71 x10^6/uL (4.38-5.82); RED CELL DISTRIBUTION WIDTH 15.9 % (9.4-14.8)
[2018-10-03 04:57] LABS: ALBUMIN 3.3 g/dL (3.4-5.0); ANION GAP 6 mmol/L (5-15); CALCIUM 8.5 mg/dL (8.5-10.1); CHLORIDE 102 mmol/L (98-107)
[2018-10-03 05:03] LABS: ALANINE AMINOTRANSFERASE 28 U/L (12-78); ALKALINE PHOSPHATASE 66 U/L (45-117); CHOL/HDL RATIO 1.9; CHOLESTEROL, TOTAL 147 mg/dL (140-239); CREATININE 0.64 mg/dL (0.7-1.3); HDL CHOL % 53 % (26-37); HDL CHOLESTEROL (DIRECT) 78 mg/dL (40-60); LDL CHOLESTEROL,CALCULATED 55 mg/dL (54-169); LDL/HDL RATIO 0.7 (0.5-3.0); TOTAL PROTEIN 6.8 g/dL (6.4-8.2); TRIGLYCERIDES 69 mg/dL (50-200); VLDL CHOLESTEROL 14 mg/dL (0-25)
[2018-10-03 07:40] VITALS: BP 124/76
[2018-10-03] MEDS: ALLOPURINOL 100 MG TABLET PO SCH (09:31)
[2018-10-03] MEDS: MULTIVITAMINS/MINERALS TABLET PO SCH (09:31)
[2018-10-03] MEDS: DULOXETINE 30 MG CAPSULE.DR PO SCH (09:31)
[2018-10-03] MEDS: FAMOTIDINE 20 MG TABLET PO SCH ×2 (09:31→21:16)
[2018-10-03] MEDS: ASPIRIN 81 MG TABLET EC PO SCH (09:31)
[2018-10-03 15:00] VITALS: BP 128/68
[2018-10-03 18:50] VITALS: BP 122/81
[2018-10-03] MEDS: TRAZODONE 100MG TABLET PO SCH (21:16)
[2018-10-03] MEDS: ATORVASTATIN 20 MG TABLET PO SCH (21:16)
[2018-10-03] MEDS: QUETIAPINE 25MG TABLET PO SCH (21:16)
[2018-10-03] MEDS: POTASSIUM CHLORIDE 20 MEQ, MAGNESIUM SULFATE 2 GM, THIAMINE 200 MG, MVI ADULT 10 ML, FO... IV SCH (22:13)
[2018-10-04 01:33] VITALS: BP 119/74
[2018-10-04] MEDS: HEPARIN 5,000 UNITS/ML, 1ML SQ SCH ×2 (03:00→09:10)
[2018-10-04 07:25] VITALS: BP 127/80
[2018-10-04] MEDS: DULOXETINE 30 MG CAPSULE.DR PO SCH (09:10)
[2018-10-04] MEDS: ASPIRIN 81 MG TABLET EC PO SCH (09:10)
[2018-10-04] MEDS: ALLOPURINOL 100 MG TABLET PO SCH (09:10)
[2018-10-04] MEDS: FAMOTIDINE 20 MG TABLET PO SCH (09:10)
[2018-10-04] MEDS: MULTIVITAMINS/MINERALS TABLET PO SCH (09:10)
[2018-10-04 13:40] VITALS: BP 129/81
== END 2018-10-04 16:10 | disposition home or self-care (01) | DRG 206 ==
LOC: ED 18:17 → EDIP 18:57 → 5SO 19:32 → 3NE 10-03 18:14
PROVIDERS: ADMIT Internal Medicine; ATTEND Internal Medicine
DX: M94.0 Chondrocostal junction syndrome [Tietze] (principal); E87.1 Hypo-osmolality and hyponatremia; F33.1 Major depressive disorder, recurrent, moderate; R45.851 Suicidal ideations; F10.229 Alcohol dependence with intoxication, unspecified; D53.9 Nutritional anemia, unspecified; E83.42 Hypomagnesemia; F17.200 Nicotine dependence, unspecified, uncomplicated; I10 Essential (primary) hypertension; I25.2 Old myocardial infarction; I27.81 Cor pulmonale (chronic); I48.91 Unspecified atrial fibrillation; M1A.9XX0 Chronic gout, unspecified, without tophus (tophi); Z59.0 Homelessness; Z86.73 Personal history of transient ischemic attack (TIA), and cerebral infarction without residual deficits; Z91.5 Personal history of self-harm
CPT/HCPCS: 36415; 71045; 72050; 80048; 80053; 80061; 80307; 82040; 83036; 83735; 83880; 84100; 84484; 85025; 85610; 85730; 87324; 93005; 99285; G0378; J1644; J3411; J3475; J3480; J7042; J2060

== ENCOUNTER 2019-12-11 02:10 | Inpatient (IN) | payer MEDICARE, MEDICAID ==
[~2019-12-11] VITALS: Ht 180.3 cm; Wt 105.9 kg
[~2019-12-11 02:10] MED LIST changes: -OMEP10CA4 PO; +OMEP10CA5 PO; -PRED1TAB PO; +PRED1TAB19 PO; -TRAZ-137 PO; +TRAZ-175 PO
[2019-12-11] MEDS ORDERED: POLYETHYLENE GLYCOL 17 GM PACKET PO PRN (02:30)
[2019-12-11] MEDS ORDERED: DOCUSATE 100 MG CAPSULE PO PRN (02:30)
[2019-12-11] MEDS ORDERED: BISACODYL 10 MG SUPP PR PRN (02:30)
[2019-12-11] MEDS ORDERED: ACETAMINOPHEN 325 MG TABLET PO PRN (02:30)
[2019-12-11] MEDS ORDERED: ONDANSETRON ODT 4 MG PO PRN (02:30)
[2019-12-11] MEDS: PLEASE ENTER HEIGHT AND WEIGHT MC SCH ×2 (05:30→13:30)
[2019-12-11] MEDS ORDERED: DOXEPIN 100 MG CAPSULE PO PRN (05:30)
[2019-12-11 05:46] VITALS: BP 155/93
[2019-12-11 07:25] VITALS: BP 127/80
[2019-12-11] MEDS: LORazepam 1MG TABLET PO PRN ×3 (07:40→22:14)
[2019-12-11] MEDS: TAMSULOSIN 0.4 MG CAP.ER.24H PO SCH (08:24)
[2019-12-11] MEDS: DOCUSATE 100 MG CAPSULE PO SCH (08:24)
[2019-12-11] MEDS: ACAMPROSATE 333 MG TABLET.DR PO SCH ×3 (08:25→20:13)
[2019-12-11] MEDS: FLUOXETINE HCL 20 MG CAPSULE PO SCH (08:25)
[2019-12-11] MEDS: AMLODIPINE 5 MG TABLET PO SCH ×2 (08:25→20:14)
[2019-12-11] MEDS ORDERED: NICOTINE 14MG/24 HR PATCH.TD24 TD ONE (09:00)
[2019-12-11 09:11] LABS: CHOL/HDL RATIO 1.5; FREE T4 (FREE THYROXINE) 1.02 ng/dL (0.76-1.46); LDL/HDL RATIO 0.4 (0.5-3.0)
[2019-12-11] MEDS ORDERED: AMLO5TAB4 PO (14:33)
[2019-12-11] MEDS ORDERED: TAMS-11 PO (14:33)
[2019-12-11] MEDS ORDERED: PRAZ2CAP2 PO (14:33)
[2019-12-11] MEDS ORDERED: ATOR20TA86 PO (14:33)
[2019-12-11] MEDS ORDERED: FLUO40CA2 PO (14:33)
[2019-12-11] MEDS: GABAPENTIN 400 MG CAPSULE PO SCH ×2 (15:50→20:13)
[2019-12-11 20:00] VITALS: BP 125/75
[2019-12-11] MEDS: ATORVASTATIN 40 MG TABLET PO SCH (20:13)
[2019-12-11] MEDS: QUETIAPINE 100MG TABLET PO SCH (20:13)
[2019-12-11] MEDS: PRAZOSIN 2 MG CAPSULE PO SCH (20:14)
[2019-12-12 07:24] VITALS: BP 149/94
[2019-12-12 08:34] LABS: ALANINE AMINOTRANSFERASE 35 U/L (12-78); ALBUMIN 3.5 g/dL (3.4-5.0); ANION GAP 5 mmol/L (5-15); CALCIUM 8.7 mg/dL (8.5-10.1); CHLORIDE 109 mmol/L (98-107); CREATININE 0.86 mg/dL (0.7-1.3)
[2019-12-12 08:44] LABS: ALKALINE PHOSPHATASE 67 U/L (45-117); BILIRUBIN,TOTAL 0.4 mg/dL (0.2-1.0); FREE T4 (FREE THYROXINE) 0.93 ng/dL (0.76-1.46); TOTAL PROTEIN 6.9 g/dL (6.4-8.2)
[2019-12-12 08:59] LABS: MEAN CORPUSCULAR HEMOGLOBIN 33.1 pg (27.5-34.5); MEAN CORPUSCULAR VOLUME 100.3 fL (81-97); MEAN PLATELET VOLUME 9.5 fL (7.4-10.4); PLATELET COUNT 61 x10^3/uL (130-400); RED BLOOD COUNT 3.96 x10^6/uL (4.38-5.82); RED CELL DISTRIBUTION WIDTH 13.7 % (9.4-14.8)
[2019-12-12 09:00] LABS: BASOPHILS # (AUTO) 0.01 x10^3/uL (0-0.1); BASOPHILS % (AUTO) 0 % (0-1); EOSINOPHILS # (AUTO) 0.17 x10^3/uL (0-0.4); EOSINOPHILS % (AUTO) 7 % (1-7); LYMPHOCYTES # (AUTO) 0.62 x10^3/uL (1-3.4); LYMPHOCYTES % (AUTO) 24 % (22-44); MD SCAN; MONOCYTES # (AUTO) 0.21 x10^3/uL (0.2-0.8); MONOCYTES % (AUTO) 8 % (2-9); NEUTROPHILS # (AUTO) 1.55 x10^3/uL (1.8-6.8); NEUTROPHILS % (AUTO) 61 % (42-75)
[2019-12-12] MEDS: AMLODIPINE 5 MG TABLET PO SCH ×2 (09:38→19:53)
[2019-12-12] MEDS: GABAPENTIN 400 MG CAPSULE PO SCH ×3 (09:38→19:53)
[2019-12-12] MEDS: LISINOPRIL 10 MG TABLET PO SCH (09:38)
[2019-12-12] MEDS: DOCUSATE 100 MG CAPSULE PO SCH (09:38)
[2019-12-12] MEDS: FLUOXETINE HCL 20 MG CAPSULE PO SCH (09:38)
[2019-12-12] MEDS: TAMSULOSIN 0.4 MG CAP.ER.24H PO SCH (09:38)
[2019-12-12] MEDS: ACAMPROSATE 333 MG TABLET.DR PO SCH ×3 (09:39→19:53)
[2019-12-12] MEDS: LORazepam 1MG TABLET PO PRN ×2 (09:42→19:53)
[2019-12-12 19:39] VITALS: BP 101/68
[2019-12-12] MEDS: ATORVASTATIN 40 MG TABLET PO SCH (19:53)
[2019-12-12] MEDS: PRAZOSIN 2 MG CAPSULE PO SCH (19:53)
[2019-12-12] MEDS: QUETIAPINE 100MG TABLET PO SCH (19:53)
[2019-12-13 07:00] VITALS: BP 106/75
[2019-12-13] MEDS: ACAMPROSATE 333 MG TABLET.DR PO SCH ×3 (08:17→20:20)
[2019-12-13] MEDS: TAMSULOSIN 0.4 MG CAP.ER.24H PO SCH (08:17)
[2019-12-13] MEDS: DOCUSATE 100 MG CAPSULE PO SCH (08:17)
[2019-12-13] MEDS: GABAPENTIN 400 MG CAPSULE PO SCH ×3 (08:18→20:20)
[2019-12-13] MEDS: AMLODIPINE 5 MG TABLET PO SCH ×2 (08:18→20:21)
[2019-12-13] MEDS: LISINOPRIL 10 MG TABLET PO SCH (08:19)
[2019-12-13] MEDS: FLUOXETINE HCL 20 MG CAPSULE PO SCH (08:19)
[2019-12-13] MEDS: LORazepam 1MG TABLET PO PRN ×2 (09:18→09:19)
[2019-12-13 19:31] VITALS: BP 100/69
[2019-12-13] MEDS: ATORVASTATIN 40 MG TABLET PO SCH (20:20)
[2019-12-13] MEDS: QUETIAPINE 100MG TABLET PO SCH (20:20)
[2019-12-13] MEDS: PRAZOSIN 2 MG CAPSULE PO SCH (20:21)
[2019-12-14 07:19] VITALS: BP 115/80
[2019-12-14] MEDS: DOCUSATE 100 MG CAPSULE PO SCH (08:49)
[2019-12-14] MEDS: GABAPENTIN 400 MG CAPSULE PO SCH (08:49)
[2019-12-14] MEDS: ACAMPROSATE 333 MG TABLET.DR PO SCH (08:49)
[2019-12-14] MEDS: TAMSULOSIN 0.4 MG CAP.ER.24H PO SCH (08:50)
[2019-12-14] MEDS: AMLODIPINE 5 MG TABLET PO SCH (08:50)
[2019-12-14] MEDS: LISINOPRIL 10 MG TABLET PO SCH (08:50)
[2019-12-14] MEDS: FLUOXETINE HCL 20 MG CAPSULE PO SCH (08:50)
[2019-12-14] MEDS: LORazepam 1MG TABLET PO PRN (10:00)
[2019-12-14] MEDS ORDERED: QUET100T PO (11:56)
[2019-12-14] MEDS ORDERED: ACAM333T7 PO (11:56)
[2019-12-14] MEDS ORDERED: ATOR40TA78 PO (11:56)
[2019-12-14] MEDS ORDERED: LISI-167 PO (11:56)
[2019-12-14] MEDS ORDERED: PRAZ2CAP2 PO (11:56)
[2019-12-14] MEDS ORDERED: DOXE100C PO (11:56)
[2019-12-14] MEDS ORDERED: TAMS-11 PO (11:56)
[2019-12-14] MEDS ORDERED: AMLO-150 PO (11:56)
[2019-12-14] MEDS ORDERED: FLUO20CA23 PO (11:56)
== END 2019-12-14 15:00 | disposition home or self-care (01) | DRG 885 ==
LOC: 3E 05:05
PROVIDERS: ADMIT Psychiatry & Neurology Psychosomatic Medicine; ATTEND Psychiatry & Neurology Psychosomatic Medicine
DX: F33.2 Major depressive disorder, recurrent severe without psychotic features (principal); R45.851 Suicidal ideations; E78.5 Hyperlipidemia, unspecified; F10.20 Alcohol dependence, uncomplicated; G47.00 Insomnia, unspecified; G89.29 Other chronic pain; I10 Essential (primary) hypertension; K21.9 Gastro-esophageal reflux disease without esophagitis; M10.9 Gout, unspecified; Z79.899 Other long term (current) drug therapy
CPT/HCPCS: 36415; 71045; 80053; 80061; 82607; 84439; 84443; 85025; 93005

== ENCOUNTER 2020-01-01 12:11 | Emergency (ER) | payer MEDICARE, MEDICAID ==
[~2020-01-01] VITALS: Ht 180.3 cm; Wt 114.0 kg
[~2020-01-01 12:11] MED LIST changes: +AMLO-150 PO; +AMLO5TAB4 PO; +ATOR20TA86 PO; +ATOR40TA78 PO; +DOXE100C PO; +FLUO20CA23 PO; +FLUO40CA2 PO; +LISI-167 PO; +PRAZ2CAP2 PO; +QUET100T PO; +TAMS-11 PO
--- NOTE | 2020-01-01 12:25 | NUR ---
THIS IS A 69 YO BIB EMS FROM [facility] W/ C/O ETOH AND SI. PT STATES " I HATE MYSELF, I HAVE NO FAMILY AND IM GOING TO OFF MYSELF". PT REPORTS PLAN IS TO JUMP OFF OF [employer]. PT REPORTS DRINKING 30 BEERS TODAY. PT STATES HE WAS DC OF [place] TODAY. PT STATES HE TAKES CYMBALTA, TRAZADONE AND SEROQUL PRESCRIBED. PT BELONGINGS REMOVED AND PLACED IN SAFETY LOCKER. PT RESTING ON [facility] W/ SIDE RAILS UPX2, GARAGE DOORS DOWN AND SITTER OUTSIDE ROOM FOR SAFETY. LIEN PIERCE. AWAITING ED EVAL.
--- NOTE | 2020-01-01 12:29 | NUR ---
PT PROVIDED URINAL AND EDUCATED ON NEED FOR URINE SAMPLE.
--- NOTE | 2020-01-01 12:46 | NUR ---
URINE COLLECTED AND SENT TO LAB.
[2020-01-01 13:02] LABS: BASOPHILS # (AUTO) 0.01 x10^3/uL (0-0.1); BASOPHILS % (AUTO) 0 % (0-1); EOSINOPHILS # (AUTO) 0.14 x10^3/uL (0-0.4); EOSINOPHILS % (AUTO) 2 % (1-7); LYMPHOCYTES # (AUTO) 1.07 x10^3/uL (1-3.4); LYMPHOCYTES % (AUTO) 15 % (22-44); MD NO; MEAN CORPUSCULAR HEMOGLOBIN 33.9 pg (27.5-34.5); MEAN CORPUSCULAR HGB CONC 34.1 g/dL (33.2-36.2); MEAN PLATELET VOLUME 8.6 fL (7.4-10.4); MONOCYTES # (AUTO) 0.27 x10^3/uL (0.2-0.8); MONOCYTES % (AUTO) 4 % (2-9); NEUTROPHILS # (AUTO) 5.59 x10^3/uL (1.8-6.8); NEUTROPHILS % (AUTO) 79 % (42-75); PLATELET COUNT 112 x10^3/uL (130-400); RED BLOOD COUNT 3.82 x10^6/uL (4.38-5.82); RED CELL DISTRIBUTION WIDTH 13.4 % (9.4-14.8)
[2020-01-01 13:14] LABS: AMPHETAMINE SCREEN, URINE Negative (Negative); BARBITURATE SCREEN, URINE Negative (Negative); BENZODIAZEPINE SCREEN, URINE Negative (Negative); CANNABINOID SCREEN, URINE Positive (Negative); COCAINE SCREEN, URINE Negative (Negative); METHADONE SCREEN, URINE Negative (Negative); OPIATE SCREEN, URINE Negative (Negative)
[2020-01-01 13:15] LABS: ALANINE AMINOTRANSFERASE 35 U/L (12-78); ANION GAP 7 mmol/L (5-15); CHLORIDE 90 mmol/L (98-107); CREATININE 0.63 mg/dL (0.7-1.3); SALICYLATE LEVEL < 1.7 mg/dL (2.8-20.0)
[2020-01-01 13:17] LABS: ALKALINE PHOSPHATASE 64 U/L (45-117); BILIRUBIN,TOTAL 1.1 mg/dL (0.2-1.0); TOTAL PROTEIN 7.2 g/dL (6.4-8.2)
[2020-01-01] MEDS ORDERED: SODIUM CHLORIDE FLUSH 10ML SYR IVF ONE (14:00)
[2020-01-01] MEDS ORDERED: SODIUM CHLORIDE 0.9% 1,000ML IVBOLUS ONE (14:00)
--- NOTE | 2020-01-01 14:30 | NUR ---
PIV INITIATED, PT MEDICATED PER MAY. SITTER IN VIEW OF PT, SI PRECAUTIONS OBSERVED
--- NOTE | 2020-01-01 16:07 | NUR ---
MEAL TRAY PROVIDED. PT RESTING ON [facility]. MIGUEL 0.166, PRIVATE DETECTIVE UNABLE TO ASSESS PT AT THIS TIME.
[2020-01-01 19:02] LABS: ANION GAP 9 mmol/L (5-15); CALCIUM 8.4 mg/dL (8.5-10.1); CHLORIDE 96 mmol/L (98-107); CREATININE 0.65 mg/dL (0.7-1.3)
--- NOTE | 2020-01-01 19:51 | NUR ---
THROUGHPUT RN: PACKET FAXED TO [facility] AT THIS TIME PER DR MARTÍNEZ STS PT IS STABLE AND ABLE TO BE TRANSFERED AT THIS TIME
--- NOTE | 2020-01-01 20:00 | NUR ---
PER SITTER PT VOMITED APPROX 1 HR AGO. ERP NOTIFIED. PT LAYING IN GURNEY IN DARK. BROTH PROVIDED
[2020-01-01] MEDS ORDERED: SODIUM CHLORIDE 0.9% 1,000 ML IV ONE (20:02)
[2020-01-01] MEDS ORDERED: ONDANSETRON 2MG/ML, 2ML ONE (20:02)
[2020-01-01] MEDS ORDERED: ONDANSETRON 2MG/ML, 2ML IVPush ONE (20:30)
--- NOTE | 2020-01-01 21:09 | NUR ---
pt resting in gurney with eyes shut, stating " I dont feel good". When asked to elaborate pt states he has a headache and is tired.
[2020-01-01 21:10] VITALS: BP 116/75
[2020-01-01 21:24] LABS: ANION GAP 9 mmol/L (5-15); CALCIUM 8.3 mg/dL (8.5-10.1); CHLORIDE 98 mmol/L (98-107); CREATININE 0.62 mg/dL (0.7-1.3)
[2020-01-01] MEDS ORDERED: naproxen (21:46)
--- NOTE | 2020-01-01 23:12 | NUR ---
REPORT GIVEN TO Thao KEENE.
[2020-01-14] MEDS ORDERED: LISI-167 PO (14:29)
[2020-01-14] MEDS ORDERED: QUET100T PO (14:29)
[2020-01-14] MEDS ORDERED: PRAZ2CAP2 PO (14:29)
[2020-01-14] MEDS ORDERED: ATOR40TA78 PO (14:29)
[2020-01-14] MEDS ORDERED: DULO60CA7 PO (14:29)
[2020-01-14] MEDS ORDERED: TAMS-11 PO (14:29)
== END 2020-01-02 00:27 ==
LOC: ED 14:21
DX: F10.229 Alcohol dependence with intoxication, unspecified (principal); R45.851 Suicidal ideations; I10 Essential (primary) hypertension; I25.2 Old myocardial infarction; M10.9 Gout, unspecified; I95.9 Hypotension, unspecified; Z86.73 Personal history of transient ischemic attack (TIA), and cerebral infarction without residual deficits; Y90.0 Blood alcohol level of less than 20 mg/100 ml
CPT/HCPCS: 36415; 80048; 80053; 80307; 83735; 85025; 96361; 96374; 99285; J2405; J7030

== ENCOUNTER 2020-02-02 22:13 | Emergency (ER) | payer MEDICAID, MEDICARE ==
[~2020-02-02] VITALS: Ht 180.3 cm; Wt 100.0 kg
[~2020-02-02 22:13] MED LIST changes: +naproxen
[2020-02-02 22:21] VITALS: BP 123/78
--- NOTE | 2020-02-02 22:30 | NUR ---
assessment made. chart up for MD to see.
--- NOTE | 2020-02-02 22:48 | NUR ---
Discharge instructions given. All questions and concerns addressed. Patient ambulatory with a steady gait. Belongings with patient.
== END 2020-02-02 22:50 | disposition home or self-care (01) ==
LOC: ED 22:19
DX: F10.120 Alcohol abuse with intoxication, uncomplicated (principal); I10 Essential (primary) hypertension; I25.2 Old myocardial infarction; F17.290 Nicotine dependence, other tobacco product, uncomplicated; Z86.73 Personal history of transient ischemic attack (TIA), and cerebral infarction without residual deficits; Y90.9 Presence of alcohol in blood, level not specified
CPT/HCPCS: 99283; 99406

== ENCOUNTER 2020-02-03 07:03 | Emergency (ER) | payer MEDICARE ==
[~2020-02-03] VITALS: Ht 180.3 cm; Wt 100.0 kg
[2020-02-03 07:11] VITALS: BP 130/82
--- NOTE | 2020-02-03 07:16 | NUR ---
BREAK RN: THIS IS A 69 YEAR OLD MALE WHO CAME IN BY AMBULANCE DUE TO SI. PT STATES HE WANTS TO JUMP OF [employer]. PT COOPERATIVE AT THIS TIME, WAS WAS [facility] LAST WEEK. BELONGINGS 3 BAGS TO LOCKER. DISCUSSED PLAN OF CARE WITH PATIENT. ORDERED MEAL
--- NOTE | 2020-02-03 07:27 | NUR ---
BREAK RN: REPORT TO SUSY KEENE, PLAN OF CARE DISCUSSED
--- NOTE | 2020-02-03 08:15 | NUR ---
PT RESTING ON GURNEY W/ SIDE RAILS UPX2. RESP EVEN AND UNLABORED, NADN. AWAITING MEAL TRAY.
--- NOTE | 2020-02-03 08:44 | NUR ---
PTS FOOD TRAY DELIVERED. BELONGINGS RETURNED TO PT. AWARE OF POC FOR DC.
== END 2020-02-03 09:00 | disposition home or self-care (01) ==
LOC: ED 08:36
DX: F33.9 Major depressive disorder, recurrent, unspecified (principal); R45.851 Suicidal ideations; M10.9 Gout, unspecified; I25.2 Old myocardial infarction; I10 Essential (primary) hypertension; Z86.73 Personal history of transient ischemic attack (TIA), and cerebral infarction without residual deficits
CPT/HCPCS: 99284

== ENCOUNTER 2020-04-01 01:35 | Emergency (ER) | payer MEDICARE, MEDICAID ==
[~2020-04-01] VITALS: Ht 180.3 cm; Wt 100.0 kg
[~2020-04-01 01:35] MED LIST changes: +AMLO2.5T5 PO; +LIDO700A20 TD; +OLAN5TAB9 PO; +SERT100T32 PO
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
--- NOTE | 2020-04-01 02:12 | NUR ---
EKG done. pt resting. no distress noted at this time.
[2020-04-01 02:32] LABS: BASOPHILS % (AUTO) 1 % (0-1); EOSINOPHILS % (AUTO) 4 % (1-7); LYMPHOCYTES % (AUTO) 22 % (22-44); MEAN CORPUSCULAR HEMOGLOBIN 33.9 pg (27.5-34.5); MEAN CORPUSCULAR HGB CONC 34.6 g/dL (33.2-36.2); MEAN PLATELET VOLUME 9.1 fL (7.4-10.4); MONOCYTES % (AUTO) 8 % (2-9); NEUTROPHILS % (AUTO) 67 % (42-75); PLATELET COUNT 89 x10^3/uL (130-400); RED BLOOD COUNT 3.62 x10^6/uL (4.38-5.82); RED CELL DISTRIBUTION WIDTH 13.8 % (9.4-14.8)
[2020-04-01 02:35] LABS: MD NO
[2020-04-01 02:41] LABS: ALANINE AMINOTRANSFERASE 39 U/L (12-78); ALBUMIN 3.5 g/dL (3.4-5.0); ANION GAP 7 mmol/L (5-15); CALCIUM 8.1 mg/dL (8.5-10.1); CHLORIDE 93 mmol/L (98-107); CREATININE 0.68 mg/dL (0.7-1.3)
[2020-04-01 02:46] LABS: ALKALINE PHOSPHATASE 63 U/L (45-117); BILIRUBIN,TOTAL 0.6 mg/dL (0.2-1.0); TOTAL PROTEIN 6.7 g/dL (6.4-8.2); TROPONIN I < 0.015 ng/mL (0.000-0.045)
--- NOTE | 2020-04-01 03:30 | NUR ---
pt sleeping, on cr monitor, no changes. pt to be discharged this am.
[2020-04-01 05:51] VITALS: BP 108/68
--- NOTE | 2020-04-01 05:51 | NUR ---
pt awakened, calm and cooperative.
--- NOTE | 2020-04-01 06:14 | NUR ---
pt awake and ambulatory. d/c and f/u instructions given, and pt v/u. instructions to a [facility] fdc given, and a cab voucher secured to take pt to the fdc from the ER on discharge. pt awake and alert x4.
== END 2020-04-01 06:21 | disposition home or self-care (01) ==
LOC: ED 02:05
DX: F10.120 Alcohol abuse with intoxication, uncomplicated (principal); F32.1 Major depressive disorder, single episode, moderate; R07.89 Other chest pain; I10 Essential (primary) hypertension; I25.2 Old myocardial infarction; M10.9 Gout, unspecified; Z72.9 Problem related to lifestyle, unspecified; Z86.73 Personal history of transient ischemic attack (TIA), and cerebral infarction without residual deficits; Y90.0 Blood alcohol level of less than 20 mg/100 ml
CPT/HCPCS: 36415; 71045; 80053; 80320; 84484; 85025; 93005; 99285; G0480

== ENCOUNTER 2020-04-02 02:33 | Emergency (ER) | payer MEDICARE, MEDICAID ==
[~2020-04-02] VITALS: Ht 177.8 cm; Wt 92.0 kg
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
--- NOTE | 2020-04-02 02:53 | NUR ---
C-COLLAR APPLIED. PT TOLERATED WELL. URINAL PROVIDED PER PT REQUEST. NO ADDITIONAL NEEDS AT THIS TIME.
--- NOTE | 2020-04-02 02:59 | NUR ---
PT TO CT
--- NOTE | 2020-04-02 03:14 | NUR ---
PT RETURNED FROM CT
--- NOTE | 2020-04-02 04:03 | NUR ---
PT PROVIDED URINAL PER REQUEST. NO ADDITIONAL NEEDS AT THIS TIME. CALL LIGHT AND BELONGINGS WITHIN REACH. FALL PRECAUTIONS IN PLACE.
--- NOTE | 2020-04-02 04:24 | NUR ---
C-COLLAR REMOVED PER ERP ORDER. PT CONTINUES TO REST COMFORTABLY ON GURNEY WITH EYES CLOSED. NO NEEDS AT THIS TIME.
--- NOTE | 2020-04-02 06:12 | NUR ---
PT SUPINE ON GURNEY, NAD, VSS. PT UNABLE TO STAND AND WALK WITH STEADY GAIT AT THIS TIME. CALL LIGHT AND PERSONAL BELONGINGS WITHIN REACH.
--- NOTE | 2020-04-02 06:47 | NUR ---
PT TO BATHROOM ON OWN WITH STEADY GAIT.
--- NOTE | 2020-04-02 06:57 | NUR ---
BEDSIDE REPORT TO HERO KEENE
--- NOTE | 2020-04-02 06:58 | NUR ---
I am assuming care of this pt from [facility] (rn) at this time. sbar report was exchanged at the bedside.
--- NOTE | 2020-04-02 08:05 | NUR ---
pt sleeping sonorously on an er gurney. no acute changes noted since my arrival here today. we are awaiting a mealtray to aid in etoh metabolism.
--- NOTE | 2020-04-02 08:10 | NUR ---
mealtray provided, and appreciated. pt ambulated to the restroom unassisted with a steady gait. we will prepare for d/c at this time.
[2020-04-02 08:32] VITALS: BP 117/72
--- NOTE | 2020-04-02 08:38 | NUR ---
pt ambulated independently and willingly to d/c desk. suitable for d/c to public
== END 2020-04-02 08:39 | disposition home or self-care (01) ==
LOC: ED 03:03
DX: S00.81XA Abrasion of other part of head, initial encounter (principal); S09.90XA Unspecified injury of head, initial encounter; F10.120 Alcohol abuse with intoxication, uncomplicated; I10 Essential (primary) hypertension; M19.90 Unspecified osteoarthritis, unspecified site; Z86.73 Personal history of transient ischemic attack (TIA), and cerebral infarction without residual deficits; I25.2 Old myocardial infarction; W01.0XXA Fall on same level from slipping, tripping and stumbling without subsequent striking against object, initial encounter; Y93.89 Activity, other specified; Y92.488 Other paved roadways as the place of occurrence of the external cause; Y99.8 Other external cause status; Y90.0 Blood alcohol level of less than 20 mg/100 ml
CPT/HCPCS: 70450; 70486; 72125; 99285